=== PATIENT | female | born 1960 | race Caucasian/White ===

== ENCOUNTER → 2016-07-09 | Outpatient (CLI) | payer OTHER ==
--- NOTE | 2016-07-10 08:54 | MAM ---
History: Well woman exam. Date of exam: 07/09/2016 Services provided: Bilateral full field digital screening mammography. CAD, the images were reviewed with R2 computer aided detection. FINDINGS: Glandular tissue is scattered glandular contour with increased mammographic density. Exam is compared with 2015 study. Stable glandular pattern. No dominant mass, architectural distortion or clustered microcalcification. IMPRESSION: Benign exam Recommendation: Routine annual mammography BIRAD CATEGORY: 2 BENIGN Electronically signed by: Porsha Larson MD 07/10/2016 8:53 AM CDT
== END | disposition home or self-care (01) ==
LOC: MAMMO 08:00
PROVIDERS: ATTEND Family Medicine
DX: Z12.31 Encounter for screening mammogram for malignant neoplasm of breast (principal)

== ENCOUNTER → 2017-02-06 | Outpatient (CLI) | payer SELFPAY | END | disposition home or self-care (01) | LOC: LAB.O 12:34 | PROVIDERS: ATTEND Nurse Practitioner Family | DX: E78.2 Mixed hyperlipidemia (principal); E03.9 Hypothyroidism, unspecified; Z00.00 Encounter for general adult medical examination without abnormal findings ==

== ENCOUNTER 2017-03-04 12:02 | Emergency (ER) | payer SELFPAY ==
[2017-03-04 12:20] VITALS: TEMP 98.1
[2017-03-04] MEDS ORDERED: ONDANSETRON INJ 4 MG/2 ML VIAL IV ONE (12:53)
[2017-03-04] MEDS ORDERED: SODIUM CHLORIDE 0.9% (FLUSH) 10 ML SYG IV PRN (12:53)
[2017-03-04] MEDS ORDERED: FAMOTIDINE IV PREMIX 20 MG in PREMIX BAG 1 BAG IVPB ONE (12:53)
[2017-03-04] MEDS ORDERED: HYOSCYAMINE SULFATE 0.5 MG/ML VIAL IV ONE (12:54)
[2017-03-04] MEDS ORDERED: SODIUM CHLORIDE 0.9% 1000ML 1,000 ML IVS ONE (12:54)
[2017-03-04] MEDS ORDERED: FAMOTIDINE IV PREMIX 50 ML IVPB ONE (12:58)
--- NOTE | 2017-03-04 13:37 | ED.PDOC ---
History of Present Illness - General Chief Complaint: GI Problem Stated Complaint: N/V/D Time Seen by Provider: 03/04/17 12:53 Information Source: patient Exam Limitations: no limitations - History of Present Illness Initial Comments: PT SENT IN FROM [facility] OFFICE FOR EVALUATION OF NAUSEA, VOMITING, AND DIARRHEA THAT BEGAN LAST NIGHT. PT REPORTS THAT STOOL AND VOMIT WERE VERY DARK IN APPEARANCE BUT DENIES SEEING ACTUAL BLOOD. PT REPORTS THAT ABDOMINAL PAIN FEELS LIKE GENERALIZED SORENESS. Abdominal Pain Onset Location: generalized abdomen Pain Radiation: no radiation Quality: other - SORENESS Timing/Duration: 24 hours Improving Factors: nothing Worsening Factors: nothing Associated Symptoms: diarrhea, nausea/vomiting Review of Systems - Review of Systems Constitutional: Denies: chills, fever EENTM: Denies: nose congestion, throat pain Respiratory: Denies: cough, short of breath Cardiology: Denies: chest pain, palpitations, syncope Gastrointestinal/Abdominal: States: see HPI, abdominal pain, diarrhea, nausea, vomiting Genitourinary: Denies: dysuria, frequency Musculoskeletal: Denies: joint pain, joint swelling Skin: Denies: change in color, lesions Neurological: Denies: headache, numbness, paresthesia Endocrine: States: no symptoms reported Hematologic/Lymphatic: States: no symptoms reported Past Medical History (General) - Patient Medical History Hx Thyroid Disease: Yes Hx Diabetes: No Hx Cancer: No Surgical History: appendectomy - Vaccination History Hx Tetanus, Diphtheria Vaccination: Yes Hx Influenza Vaccination: No Hx Pneumococcal Vaccination: No - Social History Hx Tobacco Use: Yes Hx Alcohol Use: Yes - BEER WEEKLY Hx Substance Use: Yes - MARIJUANA WEEKLY Hx Depression: Yes - Female History Patient is a Female of Child Bearing Age (10 -59 yrs old): No Family Medical History - Family History Father Family History: Unknown Physical Exam - Physical Exam General Appearance: Alert, Comfortable, No apparent distress, Well Developed, Well Groomed, Well Hydrated, Well Nourished Eyes, Ears, Nose, Throat Exam: normal ENT inspection Neck: full range of motion, supple Respiratory: lungs clear, normal breath sounds, no respiratory distress Cardiovascular/Chest: regular rate, rhythm, no murmur Gastrointestinal/Abdominal: soft, tenderness - MODERATE DIFFUSE Rectal Exam: heme positive stool Back Exam: normal inspection, no CVA tenderness Neurologic: alert, normal mood/affect, oriented x 3 Skin Exam: normal color, warm/dry Progress - Progress Progress: 03/04/17 14:28 PT RESTING COMFORTABLY AFTER IV ZOFRAN, LEVSIN AND FLUIDS. LABS AND DIAGNOSTIC STUDIES DISCUSSED. PT AGREES WITH PLAN FOR TRANSFER TO [facility] FOR ACUTE GI BLEEDING. - Results/Orders Results/Orders: 03/04/17 12:53 Sodium Chloride 0.9% (Flush) [Saline Flush Syringe] 10 ml IV PRN PRN EKG Assessment ONCE 03/04/17 13:00 EKG STAT Laboratory Results - last 24 hr 03/04/17 03/04/17 03/04/17 12:53 12:53 12:53 WBC 9.7 RBC 3.70 L Hgb 11.4 L Hct 33.8 L MCV 91.5 MCH 30.8 MCHC 33.8 RDW 12.5 Plt Count 244 MPV 9.6 Absolute Neuts (auto) 5.30 Absolute Lymphs (auto) 3.40 Absolute Monos (auto) 0.90 H Absolute Eos (auto) 0.10 Absolute Basos (auto) 0.10 Neutrophils % 54.4 Lymphocytes % 34.7 Monocytes % 9.2 H Eosinophils % 1.1 Basophils % 0.6 PT 12.3 INR 1.090 PTT (SP) 29.7 Sodium 133 L Potassium 3.8 Chloride 103 Carbon Dioxide 23 Anion Gap 10.8 L BUN 43 H Creatinine 0.55 L BUN/Creatinine Ratio 78.2 H Random Glucose 102 Serum Osmolality 277.4 Calcium 8.7 Total Bilirubin Direct Bilirubin Indirect Bilirubin AST ALT Alkaline Phosphatase Serum Total Protein Albumin Amylase 27 L Lipase 28 Stool Occult Blood 03/04/17 03/04/17 12:55 12:56 WBC RBC Hgb Hct MCV MCH MCHC RDW Plt Count MPV Absolute Neuts (auto) Absolute Lymphs (auto) Absolute Monos (auto) Absolute Eos (auto) Absolute Basos (auto) Neutrophils % Lymphocytes % Monocytes % Eosinophils % Basophils % PT INR PTT (SP) Sodium Potassium Chloride Carbon Dioxide Anion Gap BUN Creatinine BUN/Creatinine Ratio Random Glucose Serum Osmolality Calcium Total Bilirubin 0.3 Direct Bilirubin < 0.1 Indirect Bilirubin 0.2 AST 19 ALT 14 Alkaline Phosphatase 48 Serum Total Protein 7.0 Albumin 3.7 Amylase Lipase Stool Occult Blood Positive - EKG/XRAY/CT EKG: Sinus - @82BPM, NL INTERVALS, NL AXIS, no ST T wave changes - NO OLD EKG FOR COMPARISON Departure - Departure Clinical Impression: Acute gastrointestinal bleeding, Symptomatic anemia Time of Disposition: 14:31 Disposition: Transfer to Hospital Condition: Fair Departure Forms: ED Discharge - Pt. Copy, Patient Portal Self Enrollment Referrals: Nola Patino MD [Primary Care Provider] - 1-2 Weeks Home Medications: Ambulatory Orders Citalopram Hydrobromide [CeleXA] 20 mg PO DAILY 03/04/17 Gemfibrozil [Lopid] 600 mg PO BIDAC 03/04/17 Levothyroxine Sodium 50 mcg PO DAILY 03/04/17 Meloxicam 15 mg PO DAILY 03/04/17 Transfer to Outside Facility - Transfer Information Accepting Provider:: DR. 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
[2017-03-04 16:00] VITALS: BP 125/82; O2SAT 96
== END 2017-03-04 15:45 | disposition short-term general hospital (02) ==
LOC: ER 12:02
DX: K92.2 Gastrointestinal hemorrhage, unspecified (principal); D64.9 Anemia, unspecified; E07.9 Disorder of thyroid, unspecified; Z87.891 Personal history of nicotine dependence
CPT/HCPCS: 80048; 80076; 82150; 82270; 83690; 85025; 85610; 85730; 93005; J2405; J3490; J7030

== ENCOUNTER → 2018-02-04 | Outpatient (CLI) | payer OTHER | LOC: LAB.O 10:52 | PROVIDERS: ATTEND Family Medicine | DX: E78.5 Hyperlipidemia, unspecified (principal); E03.9 Hypothyroidism, unspecified ==

== ENCOUNTER → 2018-04-22 | Outpatient (CLI) | payer OTHER ==
--- NOTE | 2018-04-24 16:18 | MAM ---
EXAM DESCRIPTION: 3D Screening BILATERAL : Digital Mammography. CLINICAL HISTORY: 57 years Female ANNUAL SCREENING . No complaints. No personal or family history of breast cancer. Childbirth. Postmenopausal. No HRT. Lifetime risk of developing breast cancer (Tyrer-Cuzick model)(%): 8.9. COMPARISON: prior. No prior reports available. TECHNIQUE: Bilateral CC and MLO projection full-field images, digital tomosynthesis mammographic technique. Bilateral digital 2-D full-field MLO images. CAD not available for tomosynthesis or 2-D images. FINDINGS: The breast parenchymal density pattern is: Heterogeneously dense breast tissue, which may obscure small masses. No skin thickening or nipple retraction. Bilateral solitary microcalcifications, more on the left. Left axillary lymph nodes. No new focal, stellate mass or density, focal asymmetry , and no suspicious microcalcifications bilaterally. Stable mammograms compared to prior study. Taking into account, differences in mammographic technique. IMPRESSION: Benign exam. BIRAD CATEGORY: 2 BENIGN FINDINGS. RECOMMENDATIONS: FOLLOW UP: Routine digital bilateral mammographic screening, one year interval from March 2018. Written communication explaining the IMPRESSION and follow-up, will be mailed to the patient and referring health care provider. According to the [employer], yearly mammograms are recommended starting at age 40 and continuing as long as a woman is in good health. Any breast change noted on a breast self-exam should be reported promptly to the patient's healthcare provider. Breast MRI is recommended for women with an approximately 20-25% or greater lifetime risk of breast cancer, including women with a strong family history of breast or ovarian cancer and women who have been treated for Hodgkin's disease. A negative mammographic report should not delay tissue diagnosis in patients with significant clinical history or physical findings. Extremely dense breast tissue limits the sensitivity of digital mammography. Electronically signed by: Thiago Tate MD 04/24/2018 4:17 PM [employer] [facility]
== END ==
LOC: MAMMO 08:19
PROVIDERS: ATTEND Family Medicine
DX: Z12.31 Encounter for screening mammogram for malignant neoplasm of breast (principal); E78.5 Hyperlipidemia, unspecified

== ENCOUNTER → 2018-07-31 | Outpatient (CLI) | payer OTHER | LOC: LAB.O 08:44 | PROVIDERS: ATTEND Family Medicine | DX: E78.5 Hyperlipidemia, unspecified (principal) ==

== ENCOUNTER → 2018-09-07 | Outpatient (CLI) | payer OTHER ==
--- NOTE | 2018-09-08 08:35 | US ---
US THYROID CLINICAL STATEMENT: NODULE. COMPARISON: None TECHNIQUE: Transcutaneous scanning, grayscale and Doppler modes. FINDINGS: Size right thyroid lobe: 2.8 x 1.3 x 1.0 cm Size left thyroid lobe: 3.6 x 1.8 x 0.8 cm Size isthmus: 0.2 cm Estimated total number of nodules greater than or equal to 1 cm: None. No dominant solid masses or distinct cyst. No parenchymal edema or large calcifications. No overlying skin changes. Normal vascularity. Surrounding soft tissue is unremarkable.. IMPRESSION: 1. Heterogeneous thyroid gland with no nodules or cysts. 2. Surrounding soft tissues unremarkable. *ACR TI-RADS 2017 Recommendations for imaging follow-up of nodules: TR1: No FNA or follow up TR2: No FNA or follow up TR3: FNA if >/= 2.5 cm, follow up if 1.5 - 2.4 cm in 1, 3, and 5 years TR4: FNA if >/= 1.5 cm, follow up if 1.0 - 1.4 cm in 1, 2, 3, and 5 years TR5: FNA if >/= 1.0 cm, follow up if 0.5 - 0.9 cm every year for 5 years ACR TI-RADS recommends that no more than two nodules with the highest ACR TI-RADS total point should be biopsied and no more than four nodules should be followed. These recommendations do not apply to patients with increased risk for thyroid cancer or patients with symptomatic thyroid disease. Electronically signed by: Thiago Tate MD 09/08/2018 8:33 AM CDT
== END ==
LOC: US 08:28
PROVIDERS: ATTEND Family Medicine
DX: E04.1 Nontoxic single thyroid nodule (principal)

== ENCOUNTER → 2018-11-11 | Outpatient (CLI) | payer OTHER | LOC: LAB.O 07:27 | PROVIDERS: ATTEND Family Medicine | DX: E03.9 Hypothyroidism, unspecified (principal); E78.2 Mixed hyperlipidemia ==

== ENCOUNTER 2019-04-13 10:02 | Emergency (ER) | payer OTHER ==
[2019-04-13 10:21] VITALS: BP 145/90; TEMP 96.8; O2SAT 93
--- NOTE | 2019-04-13 11:02 | ED.PDOC ---
History of Present Illness - General Chief Complaint: General Stated Complaint: right foot and shoulder pain Time Seen by Provider: 04/13/19 10:59 Source: patient, RN notes reviewed, Vital Signs reviewed, family - , RN/MD - Records from the urgent care and [facility]. Exam Limitations: no limitations - History of Present Illness Initial Comments: Patient is a 58-year-old white female who presents with complaints of right foot pain and right shoulder pain. Approximately 5 days ago she fell going into a [employer] in [place] and sustained injuries to her right foot and right shoulder. She was seen at an urgent care who x-rayed her foot and shoulder. The shoulder did not show any acute bony injury. The right foot showed a mid right fifth metatarsal fracture with mild displacement. Patient was placed into a splint at that time. 2 days later that the splint was uncomfortable because the swelling had been reduced and she removed the splint. Patient has tried to get follow-up care from her primary care doctor as well as a local orthopedic doctor, but due to the fact that this is a third-alliance party insurance issue, nobody will see her without a santos payment. Patient is requesting further information as to who she may see as well as further medical care. Patient is requesting an MRI of her right shoulder and surgery on her right foot. The pain in her right foot is moderate in nature. It is sharp and throbbing. It is worse with standing or placing weight upon the foot. It is better with elevation and rest. The shoulder is a constant throbbing pain and is mild in nature. It is only worse with movement. Nothing makes it better. Both pains are reduced slightly with her Tylenol with codeine prescription. Associated Symptoms: denies symptoms Allergies/Adverse Reactions: Allergies Erythromycin Allergy (Verified 04/13/19 10:21) Penicillins Allergy (Verified 03/04/17 12:14) Home Medications: Ambulatory Orders Citalopram Hydrobromide [CeleXA] 20 mg PO DAILY 03/04/17 Acetaminophen W/ Codeine [Tylenol W/ CODEINE #3] 1 ea PO PRN 04/13/19 Review of Systems - Review of Systems Constitutional: States: no symptoms reported, see HPI EENTM: States: no symptoms reported Respiratory: States: no symptoms reported Cardiology: States: no symptoms reported Gastrointestinal/Abdominal: States: no symptoms reported Genitourinary: States: no symptoms reported Musculoskeletal: States: see HPI, joint pain, joint swelling. Denies: back pain, neck pain Skin: States: no symptoms reported Neurological: States: no symptoms reported Endocrine: States: no symptoms reported Hematologic/Lymphatic: States: no symptoms reported All other Systems: Reviewed and Negative Past Medical History (General) - Patient Medical History Hx Stroke: No Hx Congestive Heart Failure: No Hx Thyroid Disease: Yes Hx Diabetes: No Hx Cancer: No Surgical History: appendectomy, tonsillectomy - Vaccination History Hx Tetanus, Diphtheria Vaccination: Yes Hx Influenza Vaccination: Yes Hx Pneumococcal Vaccination: Yes - Social History Hx Tobacco Use: Yes Hx Alcohol Use: Yes - BEER WEEKLY Hx Substance Use: Yes - MARIJUANA WEEKLY Hx Depression: Yes Family Medical History - Family History Father Family History: Unknown Physical Exam - Physical Exam General Appearance: Alert, Anxious, Obvious distress, Well Developed, Well Groomed, Well Hydrated, Well Nourished Eye Exam: bilateral normal Ears, Nose, Throat: hearing grossly normal, normal ENT inspection, normal pharynx Neck: non-tender, full range of motion, supple, normal inspection Respiratory: chest non-tender, lungs clear, normal breath sounds, no respiratory distress, no accessory muscle use Cardiovascular/Chest: normal peripheral pulses, regular rate, rhythm, no edema, no gallop, no JVD, no murmur Peripheral Pulses: radial,right: 2+, dorsalis pedis,right: 2+, dorsalis pedis,left: 2+ Gastrointestinal/Abdominal: normal bowel sounds, non tender, soft, no organomegaly, no pulsatile mass Back Exam: normal inspection, no CVA tenderness, no vertebral tenderness Extremity: normal capillary refill, swelling, other - Right fifth metatarsal with tenderness to palpation at mid shaft. Cap refill distally is normal and she is neurovascularly intact distally. The foot has bruising across the top, it is yellowish in nature. The color indicates this bruises 3 to 5 days old. Neurologic: housecalls nurse II-XII nml as tested, no motor/sensory deficits, alert, oriented x 3 Progress - Progress Progress: Differential diagnosis: Foot sprain, foot fracture, ankle sprain, ankle fracture, cartilage injury to the right shoulder among others. 04/13/19 11:04 I personally discussed this patient's case with the staff of the local orthopedic surgeon who explained that they do not accept third-alliance party insurance claims. They explained that there is nobody in town that we will manage this type of claim. They recommended you [facility] but had no specific referral. Additionally, nursing discussed with [facility] patients need for care and they also explained they will not accept third-alliance party claim. I have discussed this with the patient and her . She has become quite anxious and irritated with this and wants me just to place her in a walking boot and to discharge her so she can find some follow-up care. 04/13/19 11:08 Chevy Lopez M.D. #[id number] Departure - Departure Clinical Impression: Metatarsal stress fracture of right foot Qualifiers: Encounter type: initial encounter Qualified Code(s): M84.374A - Stress fracture, right foot, initial encounter for fracture Shoulder pain, right Qualifiers: Chronicity: acute Qualified Code(s): M25.511 - Pain in right shoulder Time of Disposition: 11:07 Disposition: Discharge to Home or Self Care Condition: Good Departure Forms: ED Discharge - Pt. Copy, Patient Portal Self Enrollment Instructions: Foot Fracture (DC), Rotator Cuff Injury (DC), Shoulder Sprain (DC) Activity: other - Nonweightbearing on right foot. Referrals: Charly Urbina MD [Primary Care Provider] - 1-5 Days Home Medications: Ambulatory Orders Citalopram Hydrobromide [CeleXA] 20 mg PO DAILY 03/04/17 Acetaminophen W/ Codeine [Tylenol W/ CODEINE #3] 1 ea PO PRN 04/13/19
== END 2019-04-13 11:26 | disposition home or self-care (01) ==
LOC: ER 10:02
DX: M84.374A Stress fracture, right foot, initial encounter for fracture (principal); M25.511 Pain in right shoulder; E07.9 Disorder of thyroid, unspecified; F32.9 Major depressive disorder, single episode, unspecified; W19.XXXA Unspecified fall, initial encounter; Y92.511 Restaurant or cafe as the place of occurrence of the external cause; Z88.1 Allergy status to other antibiotic agents; Z88.0 Allergy status to penicillin; Z79.899 Other long term (current) drug therapy; Z87.891 Personal history of nicotine dependence

== ENCOUNTER → 2019-09-04 | Outpatient (CLI) | payer OTHER | LOC: YCFC.O 11:33 | PROVIDERS: ATTEND Family Medicine | DX: E78.2 Mixed hyperlipidemia (principal); E03.9 Hypothyroidism, unspecified ==

== ENCOUNTER → 2020-01-13 | Outpatient (CLI) | payer OTHER | LOC: YCFC.O 10:26 | PROVIDERS: ATTEND Family Medicine | DX: E78.5 Hyperlipidemia, unspecified (principal) ==